=== PATIENT | female | born 1975 | race African-American/Black ===

== ENCOUNTER 2018-05-02 14:10 | Outpatient (CLI) | payer OTHER ==
[2018-05-02] MEDS ORDERED: AMLO-150 PO (14:55)
== END 2018-05-02 23:59 | disposition home or self-care (01) ==
LOC: STAR 14:10
PROVIDERS: ATTEND Surgery
DX: Z02.9 Encounter for administrative examinations, unspecified (principal)

== ENCOUNTER 2018-05-06 07:21 | Day surgery (SDC) | payer OTHER ==
[~2018-05-06] VITALS: Ht 182.9 cm; Wt 91.2 kg
[~2018-05-06 07:21] MED LIST: AMLO-150 PO; BUPIVACAINE/PF-EPI 0.5% 1:200K ONE
[2018-05-06] MEDS ORDERED: LACTATED RINGERS 1,000 ML IV SCH (07:45)
[2018-05-06] MEDS ORDERED: FENTANYL PF 250 MCG/5ML ONE (07:53)
[2018-05-06] MEDS ORDERED: PROPOFOL 50 ML ONE (07:53)
[2018-05-06] MEDS ORDERED: MIDAZOLAM 1 MG/ML, 2ML ONE ×2 (07:53→10:10)
[2018-05-06 08:05] VITALS: BP 150/94
[2018-05-06 08:12] LABS: HCG UR SG 1.024 (1.003-1.030)
[2018-05-06] MEDS ORDERED: DEXAMETHASONE 4 MG/ML, 1ML ONE (08:52)
[2018-05-06] MEDS ORDERED: SUCCINYLCHOLINE 20 MG/ML, 10ML ONE (08:52)
[2018-05-06] MEDS ORDERED: ONDANSETRON 2MG/ML, 2ML ONE (08:52)
[2018-05-06] MEDS ORDERED: CEFAZOLIN 1,000 MG ONE (08:52)
[2018-05-06] MEDS ORDERED: ROCURONIUM 10MG/ML,5ML ONE (08:52)
[2018-05-06] MEDS ORDERED: KETOROLAC 30 MG/1 ML ONE (08:52)
[2018-05-06] MEDS ORDERED: DIPHENHYDRAMINE 50 MG/ML, 1ML IVPush PRN (09:30)
[2018-05-06] MEDS ORDERED: EPHEDRINE 50 MG/ML, 1ML IVPush PRN (09:30)
[2018-05-06] MEDS ORDERED: LABETALOL 5MG/ML, 20ML IV PRN (09:30)
[2018-05-06] MEDS ORDERED: PROMETHAZINE 25 MG/ML, 1ML IV PRN (09:30)
[2018-05-06] MEDS ORDERED: OXYcodone 5 MG/5 ML ORAL.SOL UDC PO PRN (09:30)
[2018-05-06] MEDS ORDERED: PROMETHAZINE 12.5 MG SUPP PR PRN (09:30)
[2018-05-06] MEDS ORDERED: MORPHINE SULFATE 4 MG/ML, 1ML IVPush PRN (09:30)
[2018-05-06] MEDS ORDERED: EPHEDRINE 50 MG/ML, 1ML IM PRN (09:30)
[2018-05-06] MEDS ORDERED: MEPERIDINE/PF 25MG/0.5ML IVPush PRN (09:30)
[2018-05-06] MEDS ORDERED: ACETAMINOPHEN 325 MG TABLET PO PRN (09:30)
[2018-05-06] MEDS ORDERED: ONDANSETRON ODT 8 MG PO PRN (09:30)
[2018-05-06] MEDS ORDERED: PROMETHAZINE 25 MG SUPP PR PRN (09:30)
[2018-05-06] MEDS ORDERED: ONDANSETRON 2MG/ML, 2ML IV PRN (09:30)
[2018-05-06] MEDS ORDERED: FENTANYL PF 100 MCG/2ML ONE (10:01)
[2018-05-06] MEDS ORDERED: OXYcodone 5 MG/5 ML ORAL.SOL UDC ONE (10:02)
[2018-05-06] MEDS: FENTANYL PF 100 MCG/2ML IV PRN ×2 (10:07→10:52)
[2018-05-06] MEDS ORDERED: MORPHINE SULFATE 4 MG/ML, 1ML ONE (10:10)
[2018-05-06] MEDS: MIDAZOLAM 1 MG/ML, 2ML IV PRN ×2 (10:13→10:52)
== END 2018-05-06 16:30 | disposition home or self-care (01) ==
LOC: OUT 07:21
PROVIDERS: ATTEND Surgery
DX: K42.9 Umbilical hernia without obstruction or gangrene (principal); I10 Essential (primary) hypertension; M62.08 Separation of muscle (nontraumatic), other site
CPT/HCPCS: 49585; 81025; C1781; J0330; J0690; J1100; J1885; J2250; J2405; J2704; J3010; J7120

== ENCOUNTER 2019-03-29 06:35 | Emergency (ER) | payer OTHER, MEDICAID ==
[~2019-03-29] VITALS: Ht 185.4 cm; Wt 95.8 kg
[~2019-03-29 06:35] MED LIST changes: -BUPIVACAINE/PF-EPI 0.5% 1:200K ONE
[2019-03-29 06:41] VITALS: BP 115/51
[2019-03-29] MEDS ORDERED: ENOX40SY4 SQ (06:59)
[2019-03-29] MEDS ORDERED: FOLI0.4T2 PO (07:01)
[2019-03-29] MEDS ORDERED: ENOXAPARIN 40 MG/0.4 ML ONE (08:12)
[2019-03-29] MEDS ORDERED: ENOXAPARIN 40 MG/0.4 ML SQ ONE (09:00)
--- NOTE | 2019-03-29 10:40 | NUR ---
RUG SCRATCHER AT BEDSIDE FOR RESOURCES TO HELP OBTAIN LOVENOX.
--- NOTE | 2019-03-29 11:08 | NUR ---
Patient given discharge instructions and they have confirmed that they understand the instructions. Patient ambulatory with steady gait.
== END 2019-03-29 11:09 | disposition home or self-care (01) ==
LOC: ED 08:48
DX: O26.892 Other specified pregnancy related conditions, second trimester (principal); M79.662 Pain in left lower leg; J02.9 Acute pharyngitis, unspecified; R09.81 Nasal congestion; Z3A.26 26 weeks gestation of pregnancy; Z86.718 Personal history of other venous thrombosis and embolism
CPT/HCPCS: 93971; 96372; 99284; J1650

== ENCOUNTER 2019-04-02 16:53 | Emergency (ER) | payer OTHER, MEDICAID ==
[~2019-04-02] VITALS: Ht 185.4 cm; Wt 99.7 kg
[~2019-04-02 16:53] MED LIST changes: +ENOX40SY4 SQ; +FOLI0.4T2 PO
[2019-04-02 17:14] VITALS: BP 123/79
--- NOTE | 2019-04-02 18:06 | NUR ---
Patient given discharge instructions and they have confirmed that they understand the instructions. Patient ambulatory with steady gait.
== END 2019-04-02 18:22 | disposition home or self-care (01) ==
LOC: ED 18:17
DX: O26.892 Other specified pregnancy related conditions, second trimester (principal); J15.9 Unspecified bacterial pneumonia; B30.9 Viral conjunctivitis, unspecified; J02.8 Acute pharyngitis due to other specified organisms; B97.89 Other viral agents as the cause of diseases classified elsewhere; Z3A.26 26 weeks gestation of pregnancy
CPT/HCPCS: 99283

== ENCOUNTER 2019-04-07 06:19 | Outpatient (CLI) | payer OTHER, MEDICAID ==
[2019-04-07] MEDS ORDERED: ASPI-496 PO (07:11)
[2019-04-07] MEDS ORDERED: FERR324T5 PO (07:11)
== END 2019-04-07 06:45 | disposition home or self-care (01) ==
LOC: LDOP 06:19
PROVIDERS: ATTEND Obstetrics & Gynecology
DX: O99.512 Diseases of the respiratory system complicating pregnancy, second trimester (principal); Z3A.27 27 weeks gestation of pregnancy
CPT/HCPCS: 99211; G0463

== ENCOUNTER 2019-04-07 06:49 | Emergency (ER) | payer OTHER, MEDICAID ==
[~2019-04-07] VITALS: Ht 185.4 cm; Wt 98.2 kg
[2019-04-07 06:51] VITALS: BP 121/45
--- NOTE | 2019-04-07 06:58 | NUR ---
Called L&D and confirmed pt was seen by L&D unit and RN prior to arrival to ED for treatment of her cough today. L&D states pt is "OB CLEARED".
[2019-04-07] MEDS ORDERED: FERR324T5 PO (07:11)
[2019-04-07] MEDS ORDERED: ASPI-496 PO (07:11)
== END 2019-04-07 09:27 | disposition home or self-care (01) ==
LOC: ED 08:55
DX: O99.512 Diseases of the respiratory system complicating pregnancy, second trimester (principal); Z3A.27 27 weeks gestation of pregnancy
CPT/HCPCS: 71046; 99283

== ENCOUNTER 2019-08-23 15:22 | Emergency (ER) | payer OTHER, MEDICAID ==
[~2019-08-23] VITALS: Ht 185.4 cm; Wt 90.7 kg
[~2019-08-23 15:22] MED LIST changes: +ASPI-496 PO; +FERR324T5 PO
[2019-08-23 15:24] VITALS: BP 131/70
--- NOTE | 2019-08-23 16:04 | NUR ---
awaiting xry. nad. as
== END 2019-08-23 17:18 | disposition home or self-care (01) ==
LOC: ED 15:57
DX: S83.421A Sprain of lateral collateral ligament of right knee, initial encounter (principal); X50.1XXA Overexertion from prolonged static or awkward postures, initial encounter; Y93.89 Activity, other specified; Y92.098 Other place in other non-institutional residence as the place of occurrence of the external cause; Y99.8 Other external cause status
CPT/HCPCS: 29505; 99283